=== PATIENT | female | born 2000 | race African-American/Black ===

== ENCOUNTER 2023-02-22 13:10 | Emergency (ER) | payer MEDICAID ==
[~2023-02-22] VITALS: Ht 157.5 cm; Wt 50.8 kg
[2023-02-22 13:13] VITALS: O2SAT 100
== END 2023-02-22 15:23 | disposition home or self-care (01) ==
LOC: ER 13:10
DX: L73.2 Hidradenitis suppurativa (principal); L98.491 Non-pressure chronic ulcer of skin of other sites limited to breakdown of skin; L97.921 Non-pressure chronic ulcer of unspecified part of left lower leg limited to breakdown of skin; L97.911 Non-pressure chronic ulcer of unspecified part of right lower leg limited to breakdown of skin
CPT/HCPCS: A4606; A4663

== ENCOUNTER 2023-02-24 15:11 | Emergency (ER) | payer MEDICAID ==
[~2023-02-24] VITALS: Ht 157.5 cm; Wt 50.8 kg
[2023-02-24 15:56] VITALS: O2SAT 96
== END 2023-02-24 17:04 | disposition home or self-care (01) ==
LOC: ER 15:11
DX: L73.2 Hidradenitis suppurativa (principal); L98.491 Non-pressure chronic ulcer of skin of other sites limited to breakdown of skin; L97.921 Non-pressure chronic ulcer of unspecified part of left lower leg limited to breakdown of skin; Z88.1 Allergy status to other antibiotic agents
CPT/HCPCS: A4606; A4663

== ENCOUNTER 2023-08-02 22:23 | Emergency (ER) | payer MEDICAID ==
[~2023-08-02] VITALS: Ht 157.5 cm; Wt 52.2 kg
[2023-08-03 01:03] VITALS: BP 109/79; TEMP 98.6; O2SAT 99
== END 2023-08-03 01:04 | disposition home or self-care (01) ==
LOC: ER 22:25
DX: Z48.01 Encounter for change or removal of surgical wound dressing (principal); Z88.1 Allergy status to other antibiotic agents
CPT/HCPCS: A4606; A4663

== ENCOUNTER 2023-08-10 12:10 | Emergency (ER) | payer MEDICAID ==
[~2023-08-10] VITALS: Ht 157.5 cm; Wt 52.2 kg
[2023-08-10] MEDS ORDERED: diphenhydrAMINE 50 MG/1 ML VIAL ONE (12:45)
[2023-08-10] MEDS ORDERED: HYDROMORPHONE 1 MG/1 ML DISP.SYRIN ONE (12:45)
[2023-08-10] MEDS: HYDROMORPHONE 1 MG/1 ML DISP.SYRIN IM ONE (12:49)
[2023-08-10] MEDS: diphenhydrAMINE 50 MG/1 ML VIAL IM ONE (12:49)
[2023-08-10] MEDS ORDERED: LORAZEPAM 2 MG/1 ML VIAL ONE (14:16)
[2023-08-10] MEDS: LORAZEPAM 2 MG/1 ML VIAL IM ONE (15:01)
[2023-08-10 16:01] VITALS: BP 119/77; O2SAT 99
== END 2023-08-10 16:02 | disposition home or self-care (01) ==
LOC: ER 12:10
DX: Z48.01 Encounter for change or removal of surgical wound dressing (principal); Z88.1 Allergy status to other antibiotic agents
CPT/HCPCS: 99284; 96372 ×3; J1200; J2060; J1170; A4606; A4663

== ENCOUNTER 2023-08-29 14:59 | Emergency (ER) | payer MEDICAID ==
[~2023-08-29] VITALS: Ht 157.5 cm; Wt 49.4 kg
[2023-08-29 15:48] VITALS: O2SAT 98
[2023-08-29 16:03] LABS: BASOPHILS # (AUTO) 0.1 K/UL (0.0-0.2); BASOPHILS % (AUTO) 0.8 % (0.0-2.0); EOSINOPHILS % (AUTO) 8.2 % (0.0-7.0); HEMATOCRIT 34.5 % (31.2-41.9); HEMOGLOBIN 10.3 g/dL (10.9-14.3); LYMPHOCYTES # (AUTO) 2.4 K/uL (0.8-4.8); LYMPHOCYTES % (AUTO) 19.7 % (20.5-51.5); MEAN CORPUSCULAR HEMOGLOBIN 22.9 uug (24.7-32.8); MEAN CORPUSCULAR HGB CONC 30 g/dL (32.3-35.6); MEAN CORPUSCULAR VOLUME 76.4 fL (75.5-95.3); MONOCYTES # (AUTO) 0.9 K/uL (0.1-1.30); MONOCYTES % (AUTO) 7.6 % (0.0-11.0); NEUTROPHILS # (AUTO) 7.9 K/uL (1.8-8.9); NEUTROPHILS % (AUTO) 63.7 % (38.5-71.5); PLATELET COUNT (AUTO) 458 K/uL (179-408); RED BLOOD CELL COUNT(AUTO) 4.51 MIL/uL (3.63-4.92); RED CELL DISTRIBUTION WIDTH 16.2 % (12.3-17.7); WHITE BLOOD COUNT (AUTO) 12.4 K/uL (3.8-11.8)
[2023-08-29 16:04] LABS: DIFFERENTIAL COMMENT 1
[2023-08-29] MEDS ORDERED: MORPHINE SULFATE 4 MG/1 ML DISP.SYRIN ONE (16:23)
[2023-08-29] MEDS ORDERED: ONDANSETRON 4 MG/2 ML VIAL ONE (16:23)
[2023-08-29] MEDS: IV NORMAL SALINE 1000 ML BAG IV ONE (16:30)
[2023-08-29] MEDS: ONDANSETRON 4 MG/2 ML VIAL IV ONE (16:30)
[2023-08-29] MEDS: MORPHINE SULFATE 2 MG/1 ML DISP.SYRIN IV ONE (16:30)
[2023-08-29 16:31] LABS: ALANINE AMINOTRANSFERASE 31 U/L (14-59); ALBUMIN 2.7 g/dL (3.4-5.0); ALKALINE PHOSPHATASE 92 U/L (50-136); ASPARTATE AMINOTRANSFERASE 10 U/L (15-37); BILIRUBIN,DIRECT 0.1 mg/dL (0.0-0.2); BILIRUBIN,TOTAL 0.3 mg/dL (0.2-1.0); CALCIUM 9.3 mg/dL (8.5-10.1); CHLORIDE 103 mmol/L (98-107); CREATININE 0.6 mg/dL (0.6-1.3); GLUCOSE 97 mg/dL (74-106); LIPASE 26 U/L (16-77); POTASSIUM 3.4 mmol/L (3.5-5.1); SODIUM SERUM 139 mmol/L (136-145)
[2023-08-29 16:38] LABS: CARBON DIOXIDE 25 mmol/L (21-32); UREA NITROGEN, BLOOD 9 mg/dL (7-18)
== END 2023-08-29 17:30 | disposition home or self-care (01) ==
LOC: ER 14:59
DX: L73.2 Hidradenitis suppurativa (principal); R10.9 Unspecified abdominal pain; Z98.890 Other specified postprocedural states; Z88.1 Allergy status to other antibiotic agents
CPT/HCPCS: 99284; 96374; 71045; 96361; 96375; 80076; 80048; 83690; 85025; 36415; J2405; J2270; J7040; A4606; A4663

== ENCOUNTER 2023-10-12 16:14 | Emergency (ER) | payer MEDICAID ==
[~2023-10-12] VITALS: Ht 157.5 cm; Wt 52.2 kg
[2023-10-12 17:55] LABS: BASOPHILS % (AUTO) 0.4 % (0.0-2.0); EOSINOPHILS # (AUTO) 0.6 K/uL (0.0-0.7); HEMATOCRIT 31.5 % (31.2-41.9); HEMOGLOBIN 9.8 g/dL (10.9-14.3); LYMPHOCYTES # (AUTO) 0.8 K/uL (0.8-4.8); MEAN CORPUSCULAR HEMOGLOBIN 22.7 uug (24.7-32.8); MEAN CORPUSCULAR HGB CONC 31 g/dL (32.3-35.6); MEAN CORPUSCULAR VOLUME 73.2 fL (75.5-95.3); MONOCYTES # (AUTO) 1.2 K/uL (0.1-1.30); NEUTROPHILS # (AUTO) 6.1 K/uL (1.8-8.9); NEUTROPHILS % (AUTO) 69.6 % (38.5-71.5); PLATELET COUNT (AUTO) 354 K/uL (179-408); RED BLOOD CELL COUNT(AUTO) 4.31 MIL/uL (3.63-4.92); RED CELL DISTRIBUTION WIDTH 16.6 % (12.3-17.7); WHITE BLOOD COUNT (AUTO) 8.7 K/uL (3.8-11.8)
[2023-10-12 18:04] LABS: CALCIUM 9.2 mg/dL (8.5-10.1); CARBON DIOXIDE 25 mmol/L (21-32); CHLORIDE 102 mmol/L (98-107); CREATININE 0.6 mg/dL (0.6-1.3); GLUCOSE 83 mg/dL (74-106); POTASSIUM 3.7 mmol/L (3.5-5.1); SODIUM SERUM 137 mmol/L (136-145); UREA NITROGEN, BLOOD 11 mg/dL (7-18)
[2023-10-12 18:08] LABS: *BILIRUBIN,URIN NEGATIVE (NEGATIVE); *BLOOD, URINE NEGATIVE (NEGATIVE); *CLARITY,URINE CLEAR (CLEAR); *COLOR,URINE YELLOW (YELLOW); *KETONES,URINE 2+ (NEGATIVE); *PROTEIN,URINE NEGATIVE (NEGATIVE); *UROBILINOGEN,URINE 0.2 E.U./dl (NORMAL); LEUKOCYTE ESTERASE ,URINE NEGATIVE (NEGATIVE); NITRITE, URINE NEGATIVE (NEGATIVE); UGLUCOSE NEGATIVE (NEGATIVE)
[2023-10-12 18:13] LABS: ALANINE AMINOTRANSFERASE 50 U/L (14-59); ALBUMIN 3.1 g/dL (3.4-5.0); ALKALINE PHOSPHATASE 96 U/L (50-136); ASPARTATE AMINOTRANSFERASE 27 U/L (15-37); BILIRUBIN,DIRECT 0.1 mg/dL (0.0-0.2); BILIRUBIN,TOTAL 0.4 mg/dL (0.2-1.0)
[2023-10-12 18:27] LABS: BACTERIA,URINE FEW /HPF (NONE SEEN); RBC,URINE 0-3 /HPF (0-3); SQUAMOUS EPITHELIAL CELL,UR MODERATE /HPF (NONE SEEN); WBC,URINE 0-3 /HPF (0-3); YEAST,URINE FEW /HPF (NONE SEEN)
[2023-10-12] MEDS ORDERED: FERR325T23 PO (19:00)
[2023-10-12 19:02] LABS: IRON, SERUM 18 ug/dL (50-175)
[2023-10-12 19:16] VITALS: BP 103/64; O2SAT 99
[2023-10-13] MEDS ORDERED: paxlovid PO (16:25)
== END 2023-10-12 19:21 | disposition home or self-care (01) ==
LOC: ER 16:16
DX: U07.1 COVID-19 (principal); R00.0 Tachycardia, unspecified; I50.9 Heart failure, unspecified; E46 Unspecified protein-calorie malnutrition; L73.2 Hidradenitis suppurativa; Z98.890 Other specified postprocedural states; Z79.899 Other long term (current) drug therapy; Z88.1 Allergy status to other antibiotic agents; Z68.21 Body mass index [BMI] 21.0-21.9, adult
CPT/HCPCS: 36415; 71045; 83550; 83605; 84484; 85025; 85730; 87040; 93005; A4606; A4663

== ENCOUNTER 2023-10-13 13:33 | Emergency (ER) | payer MEDICAID ==
[~2023-10-13] VITALS: Ht 167.6 cm; Wt 56.7 kg
[~2023-10-13 13:33] MED LIST: FERR325T23 PO
[2023-10-13] MEDS ORDERED: paxlovid PO (16:25)
[2023-10-13 17:05] VITALS: BP 106/78; O2SAT 98
== END 2023-10-13 17:05 | disposition home or self-care (01) ==
LOC: ER 13:33
DX: U07.1 COVID-19 (principal); Z98.890 Other specified postprocedural states; Z79.899 Other long term (current) drug therapy; Z88.5 Allergy status to narcotic agent
CPT/HCPCS: A4606; A4663

== ENCOUNTER 2023-12-21 11:20 | Emergency (ER) | payer MEDICAID ==
[~2023-12-21] VITALS: Ht 157.5 cm; Wt 51.7 kg
[~2023-12-21 11:20] MED LIST changes: +paxlovid PO
[2023-12-21 12:19] VITALS: BP 120/81; TEMP 98.7; O2SAT 100
== END 2023-12-21 12:20 | disposition home or self-care (01) ==
LOC: ER 11:20
DX: N76.4 Abscess of vulva (principal); Z88.1 Allergy status to other antibiotic agents; Z87.39 Personal history of other diseases of the musculoskeletal system and connective tissue; Z87.2 Personal history of diseases of the skin and subcutaneous tissue
CPT/HCPCS: A4606; A4663

== ENCOUNTER 2024-10-03 16:07 | Emergency (ER) | payer MEDICAID ==
[~2024-10-03] VITALS: Ht 157.5 cm; Wt 51.7 kg
[2024-10-03 16:12] VITALS: BP 120/84
[2024-10-03 17:16] LABS: PLATELET COUNT (AUTO) 290 K/uL (179-408); RED BLOOD CELL COUNT(AUTO) 4.09 MIL/uL (3.63-4.92); RED CELL DISTRIBUTION WIDTH 17.0 % (12.3-17.7); WHITE BLOOD COUNT (AUTO) 8.9 K/uL (3.8-11.8)
[2024-10-03 17:24] LABS: CREATININE 0.7 mg/dL (0.6-1.3); SODIUM SERUM 138.0 mmol/L (136-145); UREA NITROGEN, BLOOD 9.0 mg/dL (7-18)
[2024-10-03 18:02] LABS: IRON, SERUM 27 ug/dL (50-175)
[2024-10-03] MEDS ORDERED: LORA-259 PO (18:27)
[2024-10-03] MEDS ORDERED: LORAZEPAM 1 MG TABLET ONE (18:29)
[2024-10-03] MEDS: LORAZEPAM 0.5 MG TABLET PO ONE (18:30)
[2024-10-03 18:37] VITALS: BP 117/82; O2SAT 99
== END 2024-10-03 18:39 | disposition home or self-care (01) ==
LOC: ER 16:15
DX: R00.0 Tachycardia, unspecified (principal); R00.2 Palpitations; F41.9 Anxiety disorder, unspecified; D50.9 Iron deficiency anemia, unspecified; Z20.822 Contact with and (suspected) exposure to COVID-19; Z88.1 Allergy status to other antibiotic agents; Z87.39 Personal history of other diseases of the musculoskeletal system and connective tissue; Z87.2 Personal history of diseases of the skin and subcutaneous tissue; Z88.8 Allergy status to other drugs, medicaments and biological substances
CPT/HCPCS: 36415; 70030-TC; 83550; 83735; 85025; A4606; A4663

== ENCOUNTER 2024-11-29 12:24 | Emergency (ER) | payer MEDICAID ==
[~2024-11-29] VITALS: Ht 160 cm; Wt 51.3 kg
[~2024-11-29 12:24] MED LIST changes: +LORA-259 PO
[2024-11-29 12:28] VITALS: BP 111/76
[2024-11-29 13:12] VITALS: BP 111/76; O2SAT 97
== END 2024-11-29 13:41 | disposition home or self-care (01) ==
LOC: ER 12:24
DX: R51.9 Headache, unspecified (principal); I51.9 Heart disease, unspecified; L73.2 Hidradenitis suppurativa; Z86.16 Personal history of COVID-19; Z88.1 Allergy status to other antibiotic agents
CPT/HCPCS: A4606; A4663